=== PATIENT | male | born 1960 | race Caucasian/White ===

== ENCOUNTER → 2017-09-01 | Outpatient (CLI) | payer BC ==
--- NOTE | 2017-09-01 10:09 | DIAGNOSTIC IMAGING REPORT ---
LEFT FOURTH FINGER 3 VIEWS HISTORY: PUNCTURE WOUND TO LEFT RING FINGER COMPARISON: None. FINDINGS: There is no fracture or dislocation. Soft tissues are unremarkable. No radiopaque foreign bodies. IMPRESSION: No fractures. Electronically signed by: Geremias Love M.D. 09/01/2017 10:07 AM Dictated Date/Time: 09/01/2017 10:05 AM
== END | disposition home or self-care (01) ==
LOC: C.RAD 09:17
PROVIDERS: ATTEND Family Medicine
DX: S61.235A Puncture wound without foreign body of left ring finger without damage to nail, initial encounter (principal); X58.XXXA Exposure to other specified factors, initial encounter